=== PATIENT | female | born 1930 | race Caucasian/White ===

== ENCOUNTER → 2017-08-17 | Outpatient (CLI) | payer OTHER | LOC: BMCIMAGING 10:46 | PROVIDERS: ATTEND Internal Medicine | DX: Z13.820 Encounter for screening for osteoporosis (principal); M85.851 Other specified disorders of bone density and structure, right thigh ==

== ENCOUNTER 2017-11-12 11:03 | Observation (INO) | payer OTHER ==
[2017-11-12] MEDS ORDERED: ASPIRIN 81 MG CHEWABLE TAB PO ONE (11:17)
[2017-11-12] MEDS ORDERED: NS 500 ML IV ONE (11:17)
--- NOTE | 2017-11-12 11:22 | CPEKG ---
Heart Rate: 58 RR Interval: 1034 P-R Interval: 180 QRSD Interval: 82 QT Interval: 428 QTC Interval: 421 P Raysal: 50 QRS Raysal: 5 T Wave Raysal: 43 EKG Severity - NORMAL ECG - EKG Impression: SINUS RHYTHM Electronically Signed By: Osito Samaniego 12-Nov-2017 14:52:47
--- NOTE | 2017-11-12 11:41 | EDPHY ---
H & P Time Seen by Provider: 11/12/17 11:17 HPI/ROS: HPI Chest pain, shortness of breath. 86-year-old female by private vehicle from her primary care physician's office. This is Dr. Chapa. She reports that at 3:00 a.m. She woke with chest discomfort and pressure as well as shortness of breath. She reports that this has persisted until she got to the emergency department. She was seen at her primary care physician's office but they did not have an EKG imaging or access to obtaining a troponin and further workup. Therefore she was sent here for evaluation. Currently she feels comfortable and denies any chest discomfort. ROS: Constitutional: No fever, no chills. No weakness. Eyes: No discharge. No changes in vision. ENT: No sore throat. No nasal congestion or rhinorrhea. Respiratory: No cough. As above. Cardiac: As above, no palpitations. Gastrointestinal: No abdominal pain, no vomiting, no diarrhea. Genitourinary: No hematuria. No dysuria or increased frequency with urination. Musculoskeletal: No back pain. No neck pain. No myalgias or arthralgias. Skin: No rashes. Neurological: No headache. No focal weakness or altered sensation. Past medical history: Hysterectomy, laminectomy. Social history: Nonsmoker. No alcohol. Here with family. Physical Exam: General Appearance: Alert, no distress. This patient is responding to questions appropriately and in full sentences. This patient appears well- hydrated and well-nourished. Eyes: Pupils equal and round no pallor or injection. No lid edema, erythema or injection. Respiratory: There are no retractions, lungs are clear to auscultation with good air movement bilaterally. Cardiovascular: Regular rate and rhythm. No murmur. Gastrointestinal: Abdomen is soft and nontender, no masses, bowel sounds normal. No focal tenderness at McBurney's point. No Johnson sign. Neurological: Motor sensory function is grossly intact. Cranial nerves are normal. Gait is normal. Skin: Warm and dry, no rashes. Musculoskeletal: Neck is supple and nontender. Extremities are symmetrical. All joints range without pain or impingement. Psychiatric: No agitation. No depression. Database: EKG: EKG time is 11:20 a.m.; EKG shows a narrow complex normal sinus rhythm with a ventricular rate of 58. The RI, QRS, QT intervals are within normal limits. There are no ST-T wave changes indicative of ischemic or injury pattern. No evidence of right heart strain. Interpreted by me. Imaging: Chest x-ray AP portable; the cardiac mediastinal silhouette is unremarkable. No evidence of infiltrate or pneumothorax. No acute cardiopulmonary disease process noted. Interpreted by me. Procedures: Emergency department course: IV placed, she was placed on a cafeteria monitor. Vital signs reviewed. EKG obtained and reviewed by myself. She was given 324 mg of chewed aspirin. 1:00 p.m., patient re-evaluated. Resting comfortably. No chest pain at this time. Results of her emergency department workup discussed with her and her . Plan for admission discussed. They are in agreement. Hospitalist paged. 1:10 p.m., spoke with hospitalist. Case discussed in detail. Patient accepted for admission by Dr. Johnson. Patient admitted in stable condition to the hospitalist service telemetry observation. Differential Diagnosis: The differential diagnosis on this patient includes but is not limited to acute coronary syndrome, pulmonary embolism, pneumonia, CHF. This represents a partial list of diagnoses considered. These considerations are based on history , physical exam, past history, reassessment and diagnostic testing. Smoking Status: Never smoked Constitutional: Initial Vital Signs Temperature (C) 36.4 C 11/12/17 11:07 Heart Rate 61 11/12/17 11:07 Respiratory Rate 18 11/12/17 11:07 Blood Pressure 183/87 H 11/12/17 11:07 O2 Sat (%) 96 11/12/17 11:07 O2 Delivery Mode Room Air Allergies/Adverse Reactions: No Known Allergies Allergy (Unverified 11/12/17 11:06) Home Medications: Medication Instructions Recorded NK [No Known Home Meds] 11/12/17 Medical Decision Making - Diagnostics Imaging Results: Imaging Impressions Chest X-Ray 11/12/17 11:59 Impression: Negative. - Data Points Laboratory Results: Laboratory Results 11/12/17 11:44 11/12/17 11:44 11/12/17 11/12/17 11/12/17 11:44 11:44 11:44 WBC 4.72 10^3/uL 10^3/uL (3.80-9.50) RBC 4.48 10^6/uL 10^6/uL (4.18-5.33) Hgb 14.3 g/dL g/dL (12.6-16.3) Hct 42.5 % % (38.0-47.0) MCV 94.9 fL fL (81.5-99.8) MCH 31.9 pg pg (27.9-34.1) MCHC 33.6 g/dL g/dL (32.4-36.7) RDW 13.3 % % (11.5-15.2) Plt Count 252 10^3/uL 10^3/uL (150-400) MPV 10.2 fL fL (8.7-11.7) Neut % (Auto) 59.7 % % (39.3-74.2) Lymph % (Auto) 29.4 % % (15.0-45.0) [place] % (Auto) 9.7 % % (4.5-13.0) Eos % (Auto) 0.4 % L % (0.6-7.6) Baso % (Auto) 0.6 % % (0.3-1.7) Nucleat RBC Rel Count 0.0 % % (0.0-0.2) Absolute Neuts (auto) 2.81 10^3/uL 10^3/uL (1.70-6.50) Absolute Lymphs (auto) 1.39 10^3/uL 10^3/uL (1.00-3.00) Absolute Monos (auto) 0.46 10^3/uL 10^3/uL (0.30-0.80) Absolute Eos (auto) 0.02 10^3/uL L 10^3/uL (0.03-0.40) Absolute Basos (auto) 0.03 10^3/uL 10^3/uL (0.02-0.10) Absolute Nucleated RBC 0.00 10^3/uL 10^3/uL (0-0.01) Immature Gran % 0.2 % % (0.0-1.1) Immature Gran # 0.01 10^3/uL 10^3/uL (0.00-0.10) PT 13.2 SEC SEC (12.0-15.0) INR 0.98 (0.83-1.16) APTT 27.5 SEC SEC (23.0-38.0) D-Dimer 0.42 ug/mLFEU ug/mLFEU (0.00-0.50) Sodium 142 mEq/L mEq/L (135-145) Potassium 4.4 mEq/L mEq/L (3.5-5.2) Chloride 105 mEq/L mEq/L (97-110) Carbon Dioxide 28 mEq/l mEq/l (22-31) Anion Gap 9 mEq/L mEq/L (8-16) BUN 17 mg/dL mg/dL (7-23) Creatinine 0.7 mg/dL mg/dL (0.6-1.0) Estimated GFR > 60 Glucose 89 mg/dL mg/dL (70-100) Calcium 10.4 mg/dL mg/dL (8.5-10.4) Creatine Kinase 48 IU/L IU/L (0-156) CK-MB (CK-2) Fraction 0.87 ng/mL ng/mL (0.00-3.19) Troponin I < 0.012 ng/mL ng/mL (0.000-0.034) NT-Pro-B Natriuret Pep 105 pg/mL pg/mL (0-450) Medications Given: Discontinued Medications Aspirin (Aspirin) 324 mg PO EDNOW ONE Stop: 11/12/17 11:18 Last Admin: 11/12/17 11:32 Dose: 324 mg Sodium Chloride (Ns) 500 mls @ 1,000 mls/hr IV EDNOW ONE PRN Reason: Protocol Stop: 11/12/17 11:46 Last Admin: 11/12/17 11:49 Dose: 500 mls Departure - Departure Disposition: [facility] Acute Clinical Impression: Chest discomfort, Dyspnea
[2017-11-12 12:03] LABS: INR 0.98 (0.83-1.16); PLATELET COUNT 252 10^3/uL (150-400); PROTIME(PATIENT) 13.2 SEC (12.0-15.0)
[2017-11-12 12:12] LABS: CREATINE KINASE 48 IU/L (0-156)
[2017-11-12] MEDS ORDERED: ONDANSETRON 4 MG/2 ML VIAL IVP PRN (13:02)
[2017-11-12] MEDS ORDERED: ACETAMINOPHEN 325 MG TAB PO PRN (13:02)
[2017-11-12] MEDS ORDERED: ONDANSETRON DISINTEGRATING 4 MG TAB PO PRN (13:02)
[2017-11-12] MEDS ORDERED: POLYETHYLENE GLYCOL 3350 17 GM PKT PO PRN (15:16)
--- NOTE | 2017-11-12 15:42 | GHP ---
[f rep st] HISTORY AND PHYSICAL DATE OF ADMISSION: 11/12/2017 CHIEF COMPLAINT: Chest pain. HISTORY OF PRESENT ILLNESS: An 86-year-old female with limited past medical history, who presents wi th chest pressure that began 3 a.m. the morning of presentation. Patient reports being in her normal state of health the day prior to presentation, including taking a very long walk without any symptom s, went to bed using her CPAP machine as she typically does. She woke at 3 a.m. in the morning with a sensation of claustrophobia and a tight pressure in her chest. She describes not knowing which of the 2 sensations started first. Patient describes a tightening of this pressure substernally which p ersisted even after removal of her CPAP mask and proceeded forward until early a.m., for which she ca lled her physician's clinic who redirected her to the emergency department for evaluation. She denie d any associated sensation of palpitations. Describes that the pain began resolving after initially having contact with her primary care office. Patient has not had recurrence of the pain and describe s no preceding episodes of pain similar to this that she can recall. Denies any associated shortness of breath. Denies any diaphoresis. Denies any nausea or vomiting. Patient has chronic constipatio n for which she uses MiraLAX which has not been any different. Denies any dysphagia, but does descri be chronic GERD. She does not take medications for this. Patient denies any neuralgia, myalgias, dy suria, blood in her stool or urine, or lower extremity edema. PAST MEDICAL HISTORY: 1. Dry eyes, for which she sees Ophthalmology. 2. Gastroesophageal reflux disease. 3. History of hyperlipidemia, taken off medications by her PCP. SOCIAL HISTORY: Negative for tobacco. Patient drinks alcohol 3-4 times a week. Denies any illicit drugs or marijuana. FAMILY HISTORY: Mother with hypertension. Brother with AL. REVIEW OF SYSTEMS: A 10-point review of systems is negative with the exception of that reported in t he HPI. PHYSICAL EXAMINATION: VITAL SIGNS: Blood pressure 150/74, heart rate 64, respiratory rate 16, 93% o n room air, 36.4. GENERAL: This is a healthy-appearing elderly female sitting up in bed. HEENT: N otable for moist mucous membranes. Eye exam is negative for any icterus. CARDIAC: Patient is regul ar rate and rhythm. No murmurs, gallops, or rubs. PULMONARY: Clear to auscultation bilaterally. G ASTROINTESTINAL: Positive bowel sounds. Abdomen soft and nontender in all 4 quadrants. MUSCULOSKEL ETAL: Negative for any lower extremity edema. SKIN: Negative for any rashes. NEUROLOGIC: She is alert and oriented x3. PSYCHIATRIC: She is pleasant and cooperative on interview and examination. DATA: White count 4.7, hematocrit 42.5, platelets of 252. Creatinine is 0.7. Troponin less than 0. 012. Chest x-ray, which I personally reviewed and interpreted, shows no acute cardiopulmonary findings. EKG, which I personally reviewed and interpreted, shows sinus rhythm, normal axis, normal intervals, with no acute ST-T changes. ASSESSMENT AND PLAN: This is an 86-year-old female presenting with chest pressure. 1. Acute chest pain. Although the quality of the pain is certainly concerning for possible cardiac origin, patient has nearly no cardiac risk factors and her initial objective data is all quite reassu ring. Will admit the patient for monitoring on the progressive care unit. Continue telemetry. Repe at troponins this evening. If the patient rules out, will order a graded treadmill stress test for t he morning. 2. Elevated blood pressure. The patient does not have a history of hypertension. It does appear to be coming down since the emergency department. Will not treat unless systolics are greater than 180 . Will continue to monitor as I suspect she will return to normal as the afternoon progresses. 3. Prophylaxis with Lovenox. 4. Diet regular. 5. Disposition. I expect less than 2 midnights if patient rules out appropriately with cardiac stre ss testing. I have discussed the case with the emergency room physician. Patient will be triaged to the progressive care unit for care. /[id number]/MODL
[2017-11-12] MEDS: CARBOXYMETHYLCELLULOSE 1% 0.4 ML DROPERETTE EACHEYE SCH ×2 (19:02→20:18)
[2017-11-12] MEDS: GLUCOSAMINE/CHONDROITIN CAP PO SCH (20:18)
[2017-11-12] MEDS: CALCIUM CARB W/VIT D 500 MG TAB PO SCH (20:18)
[2017-11-12] MEDS ORDERED: ASPIRIN 81 MG CHEWABLE TAB PO SCH (21:00)
[2017-11-13] MEDS: CARBOXYMETHYLCELLULOSE 1% 0.4 ML DROPERETTE EACHEYE SCH (06:03)
[2017-11-13] MEDS ORDERED: THERA TEARS EYE EACHEYE PRN (07:30)
[2017-11-13] MEDS ORDERED: Herbals/Supplements -Info Only PO SCH (09:00)
[2017-11-13] MEDS ORDERED: OMEGA-3 FATTY ACIDS 1,000 MG CAP PO SCH (09:00)
[2017-11-13] MEDS ORDERED: MULTIVITAMINS 1 EACH TAB PO SCH (09:00)
[2017-11-13] MEDS ORDERED: ENOXAPARIN 40 MG/0.4 ML SYR SC SCH (09:00)
[2017-11-13 09:12] VITALS: BP 124/62
[2017-11-13] MEDS: GLUCOSAMINE/CHONDROITIN CAP PO SCH (09:45)
[2017-11-13] MEDS: CALCIUM CARB W/VIT D 500 MG TAB PO SCH (09:45)
--- NOTE | 2017-11-13 11:43 | PDCARST ---
CAR Stress Test Results Type of Stress Test: TM stress test Indication: cp Description of Procedure: After informed consent was obtained, pt was exercised according to Rubin Protocol. Monitoring was performed with standard stress electromechanical equipment tester electrode placement. Vital signs were monitored according to protocol throughout the procedure. STRESS EKG AND HEMODYNAMIC DATA. Exercise time: 4 min. This is equivalent to:5.2 METS. Resting heart rate: 63 bpm. Resting blood pressure: 128/80 mmHg. Resting O2 saturation: 96 %. Peak heart rate: 134 bpm. This is 99 % of age predicted maximum heart rate response. Peak blood pressure: 142/60 mmHg. Exercise O2: 94 %. Arrhythmias: Rare PVC in recovery. Reason for termination: The test was stopped due to maximal effort. Symptoms: The patient experienced no typical symptoms of angina during stress or recovery. STRESS TEST ANALYSIS. Baseline ECG: SR with ROBY. Stress ECG: sinus tach. exercise induced ischemic ECG changes: No. Rhythm: No arrhythmias noted during exercise, and rare PVC in recovery. Blood pressure: Normal blood pressure response to exercise. Exercise tolerance: The patient has normal exercise tolerance adjusted for age and gender. Impression: Stress ECG is negative for ischemia. Conclusion: Likely noncardiac cp
--- NOTE | 2017-11-13 12:05 | ASMTLACE ---
LACE Length of stay for Answers: Less than 1 day current admission Acuity / Level of Answers: No Care: Did the patient have an inpatient admission? Comorbidities - select Answers: Other Notes: chest pain all that apply # of Emergency department Answers: 1-2 visits in the last 6 months Score: 2 Date Signed: 11/13/2017 12:04 PM Electronically Signed By:Brooklyn Kang RN
--- NOTE | 2017-11-13 12:17 | ASDISCHSUM ---
Discharge Information Plan Status:Home with No Needs Medically Cleared to Leave:11/13/2017 Discharge Date:11/13/2017 CM D/C Disposition:Home, Routine, Self-Care ADT D/C Disposition:Home, Routine, Self-Care Projected Discharge Date:11/13/2017 Transportation at D/C:Family Discharge Delay Reason: Follow-Up Date:11/13/2017 Discharge Slot: Final Diagnosis: Placement Information Patient Contact Information Contact Name:AMILCAR Relationship: Address:[address] Work Phone: City:[place] Alternate Phone: State/Zip Code:[place] [address] Email: Financial Information Financial Class:Medicare Advantage Plans Primary Plan Desc:[facility] ADV[employer]AGE PLANS Primary Plan Number:[id number] Secondary Plan Desc: Secondary Plan Number: Assessment Information LACE LACE Length of stay for Answers: Less than 1 day current admission Acuity / Level of Answers: No Care: Did the patient have an inpatient admission? Comorbidities - select Answers: Other Notes: chest pain all that apply # of Emergency department Answers: 1-2 visits in the last 6 months Score: 2 Date Signed: 11/13/2017 12:04 PM Electronically Signed By:Brooklyn Kang RN Case Management Discharge Plan Note Case Management Discharge Discharge Order Complete? Answers: Yes Patient to Obtain Answers: Independently Medications Transportation Arranged Answers: Family/Friends Family Notified Answers: Yes Notes: in room Discharge Comments Notes: 11/13/2017 Case Management Note Met w/pt and during rounds. Terry [phone]. Daughter Aimee lives in [place] [phone]. Pt is independent in ADL's. There are no case management d/c needs. Pt to d/c independent with follow up as directed. Date Signed: 11/13/2017 12:16 PM Electronically Signed By:Brooklyn Kang RN Intervention Information Intervention Type:*QUAN-Signed Date of Service:11/12/2017 04:03 PM Patient Type:Observation Staff Member:Ines Gabriel Hours: Discipline: Severity: Comment:
--- NOTE | 2017-11-13 18:47 | GDS ---
[f rep st] DISCHARGE SUMMARY DISCHARGE DIAGNOSES: Include: 1. Chest pain, noncardiac. 2. History of gastroesophageal reflux disease. HISTORY OF PRESENT ILLNESS: This is an 86-year-old female with limited past medical history, who pre sents with complaints of chest pain. For details of the patient's initial presentation, please see t he History and Physical dated 11/12/2017. CONSULTATIVE SERVICES: None. PROCEDURES: Patient underwent cardiac stress testing on 11/13/2018. On the treadmill, patient achie germaine full heart rate without any concerning change. HOSPITAL COURSE BY ISSUE: Chest pain. Patient was admitted to the PCU with serial troponins and EKG s, all of which were negative. She was taken for treadmill stress testing with goal heart rate witho ut any inducible ischemia. The patient is discharged home with followup with her primary care provid er. Our suspicion at the time of her disposition is that her symptoms are likely related to her refl ux. She should discuss that diagnosis with her outpatient provider. At this time, since she has had only an isolated incident of discomfort, I am not anxious to start daily scheduled medication in [facility]. The patient can keep track of the frequency of this symptom, and follow with her outpatient P CP. MEDICATIONS AT THE TIME OF DISPOSITION: Please reference medication reconciliation form. Of note, n o changes were made to the patient's home med list. No new medications were initiated. FOLLOWUP: Includes with her PCP in the next 2-4 weeks for post disposition followup. TIME SPENT: I spent greater than 30 minutes in the planning and coordination of this discharge. /[id number]/MODL
== END 2017-11-13 13:28 | disposition home or self-care (01) ==
LOC: F2W 14:26
PROVIDERS: ADMIT Hospitalist; ATTEND Hospitalist
PROC: 4A02XM4 Measurement of Cardiac Total Activity, External Approach (ICD-10-PCS; principal; 2017-11-12)
DX: R07.9 Chest pain, unspecified (principal); K21.9 Gastro-esophageal reflux disease without esophagitis; R06.02 Shortness of breath; K59.09 Other constipation
CPT/HCPCS: 71045; 93005; 93017; 99285; G0378; J1650

== ENCOUNTER → 2018-05-01 | Outpatient (CLI) | payer OTHER | LOC: FIMAGING 16:31 | PROVIDERS: ATTEND Internal Medicine | DX: G31.9 Degenerative disease of nervous system, unspecified (principal); R90.82 White matter disease, unspecified ==